=== PATIENT | male | born 1970 | race Caucasian/White ===

== ENCOUNTER 2016-10-29 21:53 | Emergency (ER) | payer SELFPAY ==
[~2016-10-29] VITALS: Ht 185.4 cm; Wt 84.0 kg
[2016-10-29 21:54] VITALS: BP 136/88; PULSE 126; RESP 16; TEMP 99.7; O2SAT 94
--- NOTE | 2016-10-29 22:00 | PD ---
Physical Exam Date Seen by Provider: Oct 29, 2016 Time Seen by Provider: 21:56 Data Data Last Documented VS Vital Signs Date Time Temp Pulse Resp B/P (MAP) Pulse Ox O2 Delivery O2 Flow Rate FiO2 10/29/16 21:54 99.7 126 16 136/88 (104) 94 Room Air MDM Supervised Visit with ASIA: No Narrative Course 46 YO M with complaint of schizophrenic episode. Endorses SI, no specific plan. Endorses visual hallucinations. PMH schizophrenia, endorses compliance with Haldol and Cogentin. Vitals stable. Patient seen in triage, awaiting bed placement. Dorene Lerma Oct 29, 2016 22:00
[2016-10-29] MEDS ORDERED: HALOPERIDOL 5 MG TAB PO ONE (22:30)
[2016-10-29] MEDS ORDERED: BENZTROPINE MESYLATE 1 MG TAB PO ONE (22:30)
--- NOTE | 2016-10-29 22:49 | PD ---
HPI Chief Complaint: Psychiatric Symptoms Time Seen by Provider: 22:01 Travel History International Travel<30 days: No Contact w/Intl Traveler<30days: No Traveled to known affect area: No History of Present Illness HPI 46-year-old white male presents to emergency department on a voluntary basis requesting psychological evaluation, medication, and admission. Patient states that he just moved to the area a few weeks ago from [place]. He states that he had been in [place] for a few months. The patient states that he does not have any medications. He states that he typically takes Haldol and Cogentin. Patient states that he does not want to go to a halfway. He wants to be admitted here. The patient states that if we discharge him he will kill himself or kill someone. He has no current plan. He denies any medical complaints otherwise. [facility] Past Medical History Hypertension: Yes Past Surgical History Surgical History: No Previous Surgery Social History Alcohol Use: No Tobacco Use: No Substance Use: No Allergies-Medications (Allergen,Severity, Reaction): Coded Allergies: risperidone (Verified Allergy, Intermediate, Rash, 10/29/16) Review of Systems Except as stated in HPI: all other systems reviewed are Neg Physical Exam Narrative GENERAL: Well-nourished, well-developed patient. SKIN: Warm and dry. HEAD: Normocephalic and atraumatic. EYES: No scleral icterus. No injection or drainage. ENT: No nasal drainage noted. Mucous membranes pink. Airway patent. NECK: Supple, trachea midline. Moves head freely without obvious discomfort. CARDIOVASCULAR: Regular rate and rhythm without murmurs, gallops, or rubs. RESPIRATORY: Breath sounds equal bilaterally. No accessory muscle use. GASTROINTESTINAL: Abdomen soft, non-tender, nondistended. EXTREMITIES: No cyanosis or edema. BACK: Nontender without obvious deformity. No CVA tenderness. NEURO: Patient is alert and oriented. no sensorimotor deficits. Nonfocal. Normal speech. PSYCH: No delusions. No auditory or visual hallucinations. Data Data Last Documented VS Vital Signs Date Time Temp Pulse Resp B/P (MAP) Pulse Ox O2 Delivery O2 Flow Rate FiO2 10/29/16 21:54 99.7 126 16 136/88 (104) 94 Room Air Orders Orders Psych Screen (10/29/16 22:10) Drug Screen, Random Urine (10/29/16 22:10) Haloperidol (Haldol) (10/29/16 22:30) Benztropine (Cogentin) (10/29/16 22:30) MDM Medical Decision Making Medical Screen Exam Complete: Yes Emergency Medical Condition: Yes Medical Record Reviewed: Yes Differential Diagnosis MDM: High Differential diagnoses: Schizophrenia, schizoaffective disorder, bipolar, anxiety, depression, adjustment reaction, mood disorder NOS, ODD, depressive disorder NOS, infection,electrolyte abnormality, malingering. Narrative Course Mental health screening discussed with the patient. Psychiatric screen ordered. Patient's given Haldol 5 mg by mouth and 1 mg of Cogentin by mouth. The patient is been medically cleared. I suspect the patient is malingering. The patient will be evaluated by the psych screener. The patient was seen by the psych screener. The patient has denied suicidal homicidal ideation. Patient does not meet inpatient criteria. The patient is given outpatient treatment options. The screener feels that the patient is not a threat to himself or others can be discharged. This is medical clearance for psychiatric admission, schizophrenia Diagnosis Primary Impression: Medical clearance for psychiatric admission Additional Impression: Schizophrenia Qualified Codes: F20.9 - Schizophrenia, unspecified Referrals: [facility] (Out patient) 1 day Patient Instructions: General Instructions Additional Instructions: Rest. Follow-up the recommendations psych screener. Med/Other Pt SpecificInfo: No Meds Exist/No RX given Disposition: 01 DISCHARGE HOME Condition: Israel Riggs Oct 29, 2016 22:49
== END 2016-10-30 01:59 | disposition home or self-care (01) ==
LOC: NEPD 21:53
DX: F20.9 Schizophrenia, unspecified (principal); R45.851 Suicidal ideations; I10 Essential (primary) hypertension
CPT/HCPCS: 99283

== ENCOUNTER 2016-11-19 21:57 | Emergency (ER) | payer MEDICARE ==
[~2016-11-19] VITALS: Ht 185.4 cm; Wt 90.0 kg
[2016-11-19 22:10] VITALS: BP 134/85; PULSE 100; RESP 16; TEMP 97.6; O2SAT 99
[2016-11-20 00:23] LABS: AUTOMATED NEUTROPHIL # 9.2 TH/MM3 (1.8-7.7); BASOPHIL % 0.3 % (0.0-2.0); EOSINOPHIL # 0.1 TH/MM3 (0-0.4); EOSINOPHIL % 0.6 % (0.0-4.0); HEMATOCRIT 33.8 % (39.0-51.0); HEMO FLAGS DIFF FINAL; MEAN CELL VOLUME 84.1 FL (80.0-100.0); MEAN CORPUSCULAR HEMOGLOBIN 27.9 PG (27.0-34.0); MEAN CORPUSCULAR HGB CONC 33.2 % (32.0-36.0); MONO % 10.1 % (0.0-8.0); PLATELET COUNT 406 TH/MM3 (150-450); RED BLOOD COUNT 4.02 MIL/MM3 (4.50-5.90); RED CELL DISTRIBUTION WIDTH 15.3 % (11.6-17.2); WHITE BLOOD COUNT 11.5 TH/MM3 (4.0-11.0)
[2016-11-20 00:24] LABS: BACTERIA, URINE MANY /hpf; BLOOD, URINE MOD (NEG); COMMENT (UR) CULTURE INDICATED; CULTURE IF INDICATED CULTURE INDICATED; GLUCOSE,URINE NEG (NEG); KETONE, URINE TRACE mg/dL (NEG); MUCUS URINE MOD /lpf (OCC); NITRITE,URINE POS (NEG); PH, URINE 6.5 (5.0-8.5)
[2016-11-20 00:32] LABS: URINE COLOR RED (YELLW/STRAW)
[2016-11-20] MEDS ORDERED: cefTRIAXone INJ 1,000 MG in SODIUM CHLORIDE 0.9% INJ 100 ML IV ONE (00:45)
[2016-11-20 00:47] LABS: ALCOHOL LESS THAN 3 MG/DL (0-5); ALT (GPT) 15 U/L (12-78); ANION GAP 11 MEQ/L (5-15); AST (GOT) 10 U/L (15-37); BICARBONATE 27.4 MEQ/L (21.0-32.0); BLOOD UREA NITROGEN 4 MG/DL (7-18); CHLORIDE 95 MEQ/L (98-107); GLOMERULAR FILTRATION RATE 139 ML/MIN (>89); SODIUM (NA) 133 MEQ/L (136-145)
[2016-11-20 00:48] LABS: POTASSIUM 2.9 MEQ/L (3.5-5.1)
[2016-11-20 00:56] LABS: ALKALINE PHOSPHATASE 66 U/L (45-117); TOTAL BILIRUBIN ADULT 0.6 MG/DL (0.2-1.0)
[2016-11-20] MEDS ORDERED: POTASSIUM CHLORIDE 10 MEQ CONTROLLED RELEASE TAB PO ONE (01:00)
[2016-11-20] MEDS ORDERED: CIPR-9 PO (01:07)
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
[2016-11-20 06:02] VITALS: PULSE 91; RESP 18; O2SAT 96
[2016-11-20 16:14] VITALS: BP 110/64; PULSE 87; RESP 18; O2SAT 95
--- NOTE | 2016-11-20 18:17 | PD ---
Physical Exam Date Seen by Provider: Nov 20, 2016 Time Seen by Provider: 18:16 Data Data Last Documented VS Vital Signs Date Time Temp Pulse Resp B/P (MAP) Pulse Ox O2 Delivery O2 Flow Rate FiO2 11/20/16 16:14 87 18 110/64 (79) 95 Room Air 11/19/16 22:10 97.6 Orders Orders Complete Blood Count With Diff (11/19/16 23:50) Comprehensive Metabolic Panel (11/19/16 23:50) Psych Screen (11/19/16 23:50) Drug Screen, Random Urine (11/19/16 23:50) Alcohol (Ethanol) (11/19/16 23:50) Urinalysis - C+S If Indicated (11/19/16 23:51) Urine Culture (11/19/16 23:59) Ceftriaxone Inj (Rocephin Inj) (11/20/16 00:45) Potassium Chloride (Kcl) (11/20/16 01:00) Labs Laboratory Tests Test 11/19/16 23:59 White Blood Count 11.5 TH/MM3 Red Blood Count 4.02 MIL/MM3 Hemoglobin 11.2 GM/DL Hematocrit 33.8 % Mean Corpuscular Volume 84.1 FL Mean Corpuscular Hemoglobin 27.9 PG Mean Corpuscular Hemoglobin Concent 33.2 % Red Cell Distribution Width 15.3 % Platelet Count 406 TH/MM3 Mean Platelet Volume 6.6 FL Neutrophils (%) (Auto) 80.0 % Lymphocytes (%) (Auto) 9.0 % Monocytes (%) (Auto) 10.1 % Eosinophils (%) (Auto) 0.6 % Basophils (%) (Auto) 0.3 % Neutrophils # (Auto) 9.2 TH/MM3 Lymphocytes # (Auto) 1.0 TH/MM3 Monocytes # (Auto) 1.2 TH/MM3 Eosinophils # (Auto) 0.1 TH/MM3 Basophils # (Auto) 0.0 TH/MM3 CBC Comment DIFF FINAL Differential Comment Urine Color RED Urine Turbidity CLOUDY Urine pH 6.5 Urine Specific [place] 1.029 Urine Protein 300 mg/dL Urine Glucose (UA) NEG mg/dL Urine Ketones TRACE mg/dL Urine Occult Blood MOD Urine Nitrite POS Urine Bilirubin NEG Urine Urobilinogen 4.0 MG/DL Urine Leukocyte Esterase LARGE Urine RBC /hpf Urine WBC /hpf Urine WBC Clumps MANY Urine Bacteria MANY /hpf Urine Mucus MOD /lpf Microscopic Urinalysis Comment CULTURE INDICATED Blood Urea Nitrogen 4 MG/DL Creatinine 0.62 MG/DL Random Glucose 124 MG/DL Total Protein 6.8 GM/DL Albumin 2.1 GM/DL Calcium Level 8.1 MG/DL Alkaline Phosphatase 66 U/L Aspartate Amino Transf (AST/SGOT) 10 U/L Alanine Aminotransferase (ALT/SGPT) 15 U/L Total Bilirubin 0.6 MG/DL Sodium Level 133 MEQ/L Potassium Level 2.9 MEQ/L Chloride Level 95 MEQ/L Carbon Dioxide Level 27.4 MEQ/L Anion Gap 11 MEQ/L Estimat Glomerular Filtration Rate 139 ML/MIN Urine Opiates Screen NEG Urine Barbiturates Screen NEG Urine Amphetamines Screen NEG Urine Benzodiazepines Screen NEG Urine Cocaine Screen NEG Urine Cannabinoids Screen NEG Ethyl Alcohol Level LESS THAN 3 MG/DL MDM Supervised Visit with ASIA: No Narrative Course 46 YO M Diagnosis Primary Impression: Medical clearance for psychiatric admission Additional Impressions: Urinary tract infection Qualified Codes: N30.00 - Acute cystitis without hematuria Hypokalemia Patient Instructions: General Instructions, Urinary Tract Infection in Men (ED) Additional Instruction: Take all of your antibiotic, which is free of [employer]. Drink plenty of fluids. Scripts Ciprofloxacin (Cipro) 500 Mg Tab 500 MG PO BID for Infection for 10 Days, #20 TAB 0 Refills Prov: Cathy Snell MD 11/20/16 Condition: Stable Dorene Lerma Nov 20, 2016 18:17
--- NOTE | 2016-11-20 19:19 | PD ---
Data Data Last Documented VS Vital Signs Date Time Temp Pulse Resp B/P (MAP) Pulse Ox O2 Delivery O2 Flow Rate FiO2 11/20/16 16:14 87 18 110/64 (79) 95 Room Air 11/19/16 22:10 97.6 Orders Orders Complete Blood Count With Diff (11/19/16 23:50) Comprehensive Metabolic Panel (11/19/16 23:50) Psych Screen (11/19/16 23:50) Drug Screen, Random Urine (11/19/16 23:50) Alcohol (Ethanol) (11/19/16 23:50) Urinalysis - C+S If Indicated (11/19/16 23:51) Urine Culture (11/19/16 23:59) Ceftriaxone Inj (Rocephin Inj) (11/20/16 00:45) Potassium Chloride (Kcl) (11/20/16 01:00) Labs Laboratory Tests Test 11/19/16 23:59 White Blood Count 11.5 TH/MM3 Red Blood Count 4.02 MIL/MM3 Hemoglobin 11.2 GM/DL Hematocrit 33.8 % Mean Corpuscular Volume 84.1 FL Mean Corpuscular Hemoglobin 27.9 PG Mean Corpuscular Hemoglobin Concent 33.2 % Red Cell Distribution Width 15.3 % Platelet Count 406 TH/MM3 Mean Platelet Volume 6.6 FL Neutrophils (%) (Auto) 80.0 % Lymphocytes (%) (Auto) 9.0 % Monocytes (%) (Auto) 10.1 % Eosinophils (%) (Auto) 0.6 % Basophils (%) (Auto) 0.3 % Neutrophils # (Auto) 9.2 TH/MM3 Lymphocytes # (Auto) 1.0 TH/MM3 Monocytes # (Auto) 1.2 TH/MM3 Eosinophils # (Auto) 0.1 TH/MM3 Basophils # (Auto) 0.0 TH/MM3 CBC Comment DIFF FINAL Differential Comment Urine Color RED Urine Turbidity CLOUDY Urine pH 6.5 Urine Specific [place] 1.029 Urine Protein 300 mg/dL Urine Glucose (UA) NEG mg/dL Urine Ketones TRACE mg/dL Urine Occult Blood MOD Urine Nitrite POS Urine Bilirubin NEG Urine Urobilinogen 4.0 MG/DL Urine Leukocyte Esterase LARGE Urine RBC /hpf Urine WBC /hpf Urine WBC Clumps MANY Urine Bacteria MANY /hpf Urine Mucus MOD /lpf Microscopic Urinalysis Comment CULTURE INDICATED Blood Urea Nitrogen 4 MG/DL Creatinine 0.62 MG/DL Random Glucose 124 MG/DL Total Protein 6.8 GM/DL Albumin 2.1 GM/DL Calcium Level 8.1 MG/DL Alkaline Phosphatase 66 U/L Aspartate Amino Transf (AST/SGOT) 10 U/L Alanine Aminotransferase (ALT/SGPT) 15 U/L Total Bilirubin 0.6 MG/DL Sodium Level 133 MEQ/L Potassium Level 2.9 MEQ/L Chloride Level 95 MEQ/L Carbon Dioxide Level 27.4 MEQ/L Anion Gap 11 MEQ/L Estimat Glomerular Filtration Rate 139 ML/MIN Urine Opiates Screen NEG Urine Barbiturates Screen NEG Urine Amphetamines Screen NEG Urine Benzodiazepines Screen NEG Urine Cocaine Screen NEG Urine Cannabinoids Screen NEG Ethyl Alcohol Level LESS THAN 3 MG/DL MDM Medical Record Reviewed: Yes Supervised Visit with ASIA: No Narrative Course CBC & BMP Diagram 11/19/16 23:59 Total Protein 6.8, Albumin 2.1 L, Calcium Level 8.1 L, Alkaline Phosphatase 66, Aspartate Amino Transf (AST/SGOT) 10 L, Alanine Aminotransferase (ALT/SGPT) 15, Total Bilirubin 0.6 UA: UTI present Tox screen [place]-negative Pt has verbalized no intention of hurting himself and has requested to leave, stating he has a pay check at [facility] and a plan to head home to [place]. Please refer to psychiatry screen. Pt states he has no intention of harming others. Diagnosis Primary Impression: Urinary tract infection Qualified Codes: N30.00 - Acute cystitis without hematuria Additional Impressions: Hypokalemia Suicidal ideation Referrals: [facility] 2 days Patient Instructions: General Instructions, Urinary Tract Infection in Men (ED) Additional Instruction: Take all of your antibiotic, which is free of [employer]. Drink plenty of fluids. Scripts Ciprofloxacin (Cipro) 500 Mg Tab 500 MG PO BID for Infection for 10 Days, #20 TAB 0 Refills Prov: Cathy Snell MD 11/20/16 Disposition: 01 DISCHARGE HOME Condition: Stable Bob Mckinnon MD Nov 20, 2016 19:19
== END 2016-11-20 19:39 | disposition home or self-care (01) ==
LOC: NEPD 21:57 → NEPB 11-20 19:39
DX: F20.9 Schizophrenia, unspecified (principal); R45.851 Suicidal ideations; N39.0 Urinary tract infection, site not specified; B96.20 Unspecified Escherichia coli [E. coli] as the cause of diseases classified elsewhere; E87.6 Hypokalemia; I10 Essential (primary) hypertension
CPT/HCPCS: 80053; 80307; 81001; 85025; 86403; 87077; 87086; 87186; 96365; 99284; J0696